=== PATIENT | male | born 1975 | race Caucasian/White ===

== ENCOUNTER 2018-01-04 11:56 | Emergency (ER) | payer OTHER ==
[~2018-01-04] VITALS: Ht 172.7 cm; Wt 100.0 kg
[2018-01-04] MEDS ORDERED: ALBU8HFA IH (12:13)
[2018-01-04 14:15] VITALS: BP 138/72
[2018-01-04] MEDS ORDERED: ONDANSETRON HCL 4 MG TABLET PO ONE (14:30)
== END 2018-01-04 14:33 | disposition home or self-care (01) ==
LOC: EMS 11:57
DX: R11.0 Nausea (principal); F15.10 Other stimulant abuse, uncomplicated; F17.210 Nicotine dependence, cigarettes, uncomplicated; J45.909 Unspecified asthma, uncomplicated; F12.90 Cannabis use, unspecified, uncomplicated; Z59.0 Homelessness
CPT/HCPCS: 99283; 99406; Q0162